=== PATIENT | male | born 1945 | race Caucasian/White ===

== ENCOUNTER 2017-08-23 21:58 | Inpatient (IN) | payer OTHER ==
[~2017-08-23] VITALS: Ht 170.2 cm; Wt 68.5 kg
--- NOTE | 2017-08-23 22:10 | NUR ---
PATIENT TO ED DT DIZZINES, NAUSEA AND BLOOD IN THE STOOL SINCE TUESDAY. PATIENT IS COMPLAINING ABDOMINAL DISCOMFORT PAIN,. PT IS AWAKE AND ALERT, APPEARS IN NO DISTRESS. RESPIRATION EVEN AND UNLABORED. SKIN IS WARM TO TOUCH AND NON DIAPHORETIC. PT IS AFEBRILE. VSS
[2017-08-23] MEDS ORDERED: ONDANSETRON HCL/PF 4 MG/2 ML VIAL ONE (22:20)
[2017-08-23] MEDS ORDERED: MORPHINE SULFATE INJ 4 MG/ML DISP.SYRIN ONE (22:21)
[2017-08-23] MEDS ORDERED: ONDANSETRON HCL/PF 4 MG/2 ML VIAL IVP ONE (22:30)
[2017-08-23] MEDS ORDERED: IV NS 0.9% 500 ML BAG IV ONE (22:30)
[2017-08-23] MEDS ORDERED: MORPHINE SULFATE INJ 2 MG/ML DISP.SYRIN IV ONE (22:30)
[2017-08-23 22:39] LABS: BASOPHILS # (AUTO) 0.1 /CMM (0.0-0.2); BASOPHILS % (AUTO) 1.1 % (0.0-2.0); EOSINOPHILS % (AUTO) 4.5 % (0.0-6.0); HEMATOCRIT 32 % (39-51); HEMOGLOBIN 10.9 g/dL (13.5-17.5); MEAN CORPUSCULAR HGB CONC 35 g/dl (31.0-36.0); MEAN CORPUSCULAR VOLUME 87 fL (80-96); MONOCYTES # (AUTO) 0.3 /CMM (0.1-1.30); MONOCYTES % (AUTO) 5.7 % (2.0-12.0); NEUTROPHILS # (AUTO) 4.4 /CMM (1.8-8.9); NEUTROPHILS % (AUTO) 72.7 % (43.0-81.0); PLATELET COUNT (AUTO) 105 /CMM (150-450); RDW COEFFICIENT OF VARIATION 14.5 (11.5-15.0); RED BLOOD CELL COUNT(AUTO) 3.64 MIL/uL (4.5-6.0); WHITE BLOOD COUNT (AUTO) 6.1 K/uL (4.3-11.0)
[2017-08-23 22:42] LABS: APPEARANCE,URINE CLEAR (CLEAR); BILIRUBIN,URINE NEGATIVE (NEGATIVE); BLOOD, URINE NEGATIVE Ery/uL (NEGATIVE); KETONES,URINE NEGATIVE (NEGATIVE); LEUKOCYTE ESTERASE ,URINE NEGATIVE (NEGATIVE); NITRITE, URINE NEGATIVE (NEGATIVE); PROTEIN,URINE 2+ mg/dl (NEGATIVE); UGLUCOSE NEGATIVE (NEGATIVE); UROBILINOGEN,URINE 0.2 EU/dL (0.2)
[2017-08-23 22:44] LABS: COLOR,URINE DARK YELLOW (YELLOW)
[2017-08-23 22:47] LABS: CALCIUM, SERUM 8.2 mg/dL (8.5-10.1); CARBON DIOXIDE 20 mmol/L (21-32); CHLORIDE 110 mmol/L (98-107); CREATININE 4.4 mg/dL (0.6-1.3); GLUCOSE 107 mg/dL (74-106); POTASSIUM 4.4 mmol/L (3.5-5.1); SODIUM SERUM 143 mmol/L (136-145); UREA NITROGEN, BLOOD 52 mg/dL (7-18)
[2017-08-23 22:51] LABS: INR 1.07 (0.87-1.13)
[2017-08-23 22:53] LABS: ALANINE AMINOTRANSFERASE 55 U/L (12-78); ALBUMIN 3.1 g/dL (3.4-5.0); ALKALINE PHOSPHATASE 63 U/L (46-116); ASPARTATE AMINOTRANSFERASE 45 U/L (15-37); BILIRUBIN,DIRECT 0.2 mg/dL (0.0-0.2); BILIRUBIN,TOTAL 0.7 mg/dL (0.2-1.0); LIPASE 587 U/L (73-393); TOTAL PROTEIN, SERUM 7.3 g/dL (6.4-8.2)
[2017-08-23 22:55] LABS: TROPONIN I < 0.017 ng/mL (0.00-0.056)
[2017-08-23 22:56] LABS: BACTERIA,URINE None seen /HPF (None Seen); RBC,URINE NONE SEEN /HPF (0-2); SQUAMOUS EPITHELIAL CELL,UR Few /HPF (None Seen); WBC,URINE 0-2 /HPF (0-3)
[2017-08-23 22:57] LABS: MUCUS,URINE Rare /LPF (None Seen)
[2017-08-24] VITALS (8 sets, daily range): BP systolic 141–182; BP diastolic 76–83
--- NOTE | 2017-08-24 01:04 | NUR ---
TELE 325-2
[2017-08-24] MEDS ORDERED: hydrALAZINE HCL IV 20 MG VIAL ONE (01:06)
--- NOTE | 2017-08-24 01:21 | NUR ---
REPORT GIVEN TO HAKAN PONCE FOR DARCY.
[2017-08-24] MEDS ORDERED: hydrALAZINE HCL IV 20 MG VIAL IV ONE (01:30)
[2017-08-24] MEDS ORDERED: HYDROCODONE/APAP 5/325MG 1 EACH TABLET PO PRN (02:00)
[2017-08-24] MEDS ORDERED: IV D5/ 0.9% NACL 1,000 ML IV ONE (02:00)
[2017-08-24] MEDS ORDERED: HYDROMORPHONE 1 MG/1 ML DISP.SYRIN IV PRN (02:00)
[2017-08-24] MEDS ORDERED: ACETAMINOPHEN 325 MG TABLET PO PRN (02:00)
[2017-08-24] MEDS ORDERED: ZOLPIDEM TARTRATE 5 MG TABLET PO PRN (02:00)
[2017-08-24] MEDS ORDERED: ONDANSETRON HCL/PF 4 MG/2 ML VIAL IV PRN (02:00)
[2017-08-24] MEDS: IV D5/ 0.9% NACL 1,000 ML IV SCH ×3 (02:35→23:44)
--- NOTE | 2017-08-24 02:52 | NUR ---
RN NOTES RECEIVE PT FROM [facility] AT 0130 VIA [facility] PT A/O X 4 , TOLERATING ROOM AIR 100% NO DIARRHEA OF TIME. HEAD TO TOE SKIN ASSESSMENT IS DONE. NO S/S OF DISTRESS, STABLE, SAFETY MEASURES IN PLACE, CALL LIGHT WITHIN REACH, WILL CONTINUE TO MONITOR. ATTACH TO TELE MONITOR. PT AFEBRILE. RESPIRATION EVEN AND UNLABORED.
--- NOTE | 2017-08-24 06:25 | NUR ---
LEOBARDO RN NOTES PT ASLEEP COMFORTABLY IN BED AND EASILY AWAKEN HEAD OF BED ELEVATED FOR BETTER LUNG EXPANSION AND GOOD CIRCULATION. TOLERATING ROOM AIR 98% NOT IN RESPIRATORY DISTRESS. NO COMPLAINS OF PAIN. STABLE CONDITION. NO DIARRHEA OF THIS TIME. NO S/S OF BLEEDING. PT KEPT CLEAN AND DRY AND COMFORT. NURSING CARE RENDERED. NEEDS ATTENDED AND ANTICIPATED. GOOD SKIN CARE PROVIDED. ON LOW BED TO ENSURE SAFETY, CALL LIGHT WITHIN REACH, WILL ENDORSE TO THE NEXT SHIFT CONTINUE PLAN OF CARE
--- NOTE | 2017-08-24 07:10 | NUR ---
RN OPENING TELE NOTES PT. IS ON NPO EXCEPT MEDS DUE TO DIAGNOSIS. RECEIVED PT. IN BED A&OX4. TELE MONITOR READING SINUS RHYTHM WITH 1ST DEGREE AV BLOCK AT 60 BPM. BREATHING UNLABORED ON ROOM AIR. NO SOB. NO S/S OF ACUTE DISTRESS. IV FLUIDS RUNNING AT 100 ML/HR. URINAL AT BEDSIDE. BED IS IN LOWEST, AND LOCKED POSITION, AND 2 SIDE RAILS UP. URINAL AT BEDSIDE. INSTRUCTED PT. TO USE CALL LIGHT FOR ASSISTANCE. ALL NEEDS MET. WILL CONTINUE TO ASSESS AND MONITOR.
[2017-08-24] MEDS ORDERED: PANTOPRAZOLE 40 MG VIAL IV SCH (07:30)
[2017-08-24 07:33] LABS: BASOPHILS % (AUTO) 0.6 % (0.0-2.0); CALCIUM, SERUM 7.6 mg/dL (8.5-10.1); CARBON DIOXIDE 19 mmol/L (21-32); CHLORIDE 115 mmol/L (98-107); EOSINOPHILS % (AUTO) 1.3 % (0.0-6.0); GLUCOSE 129 mg/dL (74-106); HEMATOCRIT 27 % (39-51); HEMOGLOBIN 9.4 g/dL (13.5-17.5); LYMPHOCYTES # (AUTO) 0.8 /CMM (0.8-4.8); LYMPHOCYTES % (AUTO) 17.8 % (20.0-44.0); MAGNESIUM 2.3 mg/dL (1.8-2.4); MEAN CORPUSCULAR HGB CONC 35 g/dl (31.0-36.0); MEAN CORPUSCULAR VOLUME 87 fL (80-96); MONOCYTES # (AUTO) 0.3 /CMM (0.1-1.30); MONOCYTES % (AUTO) 7.4 % (2.0-12.0); NEUTROPHILS # (AUTO) 3.3 /CMM (1.8-8.9); NEUTROPHILS % (AUTO) 72.9 % (43.0-81.0); PLATELET COUNT (AUTO) 70 /CMM (150-450); POTASSIUM 4.6 mmol/L (3.5-5.1); RDW COEFFICIENT OF VARIATION 14.4 (11.5-15.0); RED BLOOD CELL COUNT(AUTO) 3.12 MIL/uL (4.5-6.0); SODIUM SERUM 145 mmol/L (136-145); UREA NITROGEN, BLOOD 49 mg/dL (7-18); WHITE BLOOD COUNT (AUTO) 4.5 K/uL (4.3-11.0)
[2017-08-24 08:58] LABS: LYMPHOCYTES % (MANUAL) 18 % (16-48); MONOCYTES % (MANUAL) 9 % (0-11.0); NEUTROPHILS % (MANUAL) 73 (42-76)
[2017-08-24] MEDS: CARVEDILOL 3.125 MG TABLET PO SCH ×2 (09:48→20:22)
--- NOTE | 2017-08-24 11:33 | NUR ---
WOUND CARE CONSULT: PT PRESENTS INDEPENDENT WITH BED MOBILITY AND CONTINENT. CURRENT FELECIA SCORE IS 19. ABRASION TO RT ARM AND SKIN TEAR TO LEFT ELBOW AREA NOTED ON ADMISSION. RECOMMENDATIONS MADE FOR WOUND CARE AND DISCUSSED WITH NURSING STAFF. WILL SEE PRN. BELLO IN AGREEMENT WITH PLAN OF CARE. Addendum: 08/24/17 at 1135 by JONAS WILLIS WNDNU Amended: Links added.
[2017-08-24 11:55] LABS: HEMOGLOBIN 9.3 g/dL (13.5-17.5)
[2017-08-24] MEDS ORDERED: POLYETHYLENE GLYCOL 3350 17 GM POWD.PACK PO ONE (16:00)
--- NOTE | 2017-08-24 19:35 | NUR ---
RN CLOSING NOTES PT. REQUESTED TP MOVE TO BED 325 BED 1, OKAY FOR PT. TO MOVE TO BED 1, PER CHARGE NURSE. PT. IS ON NPO EXCEPT MEDS DUE TO DIAGNOSIS. PT. IN BED A&OX4. BREATHING UNLABORED ON ROOM AIR. NO SOB. NO S/S OF ACUTE DISTRESS. IV FLUIDS RUNNING AT 100 ML/HR. MIRALAX MIXTURE AT BEDSIDE. URINAL AT BEDSIDE. BED IS IN LOWEST, AND LOCKED POSITION, AND 2 SIDE RAILS UP. URINAL AT BEDSIDE. INSTRUCTED PT. TO USE CALL LIGHT FOR ASSISTANCE. ALL NEEDS MET. WILL ENDORSE REPORT TO NURSE.
--- NOTE | 2017-08-24 19:36 | NUR ---
RN NOTES RECEIVED PT AWAKE, HOB ELEVATED, ON ROOM AIR AND TOLERATED WELL. PT ALERT AND ORIENTED X3, NO SIGNS OF DISTRESS AND DISCOMFORT NOTED. IV ACCESS ON RIGHT FOREARM PATENT AND INTACT WITH ONGOING IVF INFUSING WELL. ENCOURAGE PT TO DRINK MIRALAX MIXTURE AT BEDSIDE. PLAN OF CARE DISCUSSED WITH THE PT AND AT BEDSIDE. SAFETY MEASURES AND FALL PRECAUTION OBSERVED. WILL CONTINUE TO MONITOR PT.
[2017-08-24] MEDS: PANTOPRAZOLE 40 MG VIAL IV SCH (20:21)
--- NOTE | 2017-08-25 07:03 | NUR ---
RN NOTES PT ASLEEP, ON ROOM AIR AND TOLERATED WELL. NO COMPLAIN OF PAIN, NAUSEA AND VOMITING. KEPT PT ON NPO. VOIDING WELL AND BM ALMOST CLEAR. FOR COLONOSCOPY AND EGT TODAY AT 1300, CONSENT SIGNED. ALL NEEDS ATTENDED. FALL PRECAUTION OBSERVED. WILL ENDORSE TO MORNING RN FOR CONTINUITY OF CARE.
--- NOTE | 2017-08-25 07:56 | NUR ---
MS/RN OPENING NOTE PATIENT IN BED IN STABLE CONDITION. A/O X 4. NO SIGNS OF ACUTE DISTRESS. NO COMPLAIN OF PAIN OR DISCOMFORT. NPO EXCEPT MEDS SECONDARY TO SCHEDULE FOR COLONOSCOPY PROCEDURE TODAY. ALL NEEDS ATTENDED TO. CALL LIGHT WITHIN REACH. WILL CONTINUE TO MONITOR TO ENSURE SAFETY.
--- NOTE | 2017-08-25 08:20 | NUR ---
MS/RN SPOKE WITH DR HARMAN SPOKE WITH DR HARMAN AND MADE AWARE PATIENT NOTED WITH ELEVATED BP OF 176/84, 53, SINCE YESTERDAY PATIENT HAD ELEVATED BP, CURRENTLY ONLY ON COREG 3.125 PO Q [address] HARMAN HE WILL PUT IN ORDER TO DISCONTINUE COREG AND START HYDRALAZINE 50MG TAB PO T.I.D. PATIENT MADE AWARE.
[2017-08-25 08:24] LABS: BASOPHILS % (AUTO) 0.9 % (0.0-2.0); EOSINOPHILS % (AUTO) 6.9 % (0.0-6.0); HEMATOCRIT 26 % (39-51); HEMOGLOBIN 8.9 g/dL (13.5-17.5); LYMPHOCYTES # (AUTO) 1.1 /CMM (0.8-4.8); LYMPHOCYTES % (AUTO) 25.3 % (20.0-44.0); MEAN CORPUSCULAR HGB CONC 34 g/dl (31.0-36.0); MEAN CORPUSCULAR VOLUME 88 fL (80-96); MONOCYTES # (AUTO) 0.4 /CMM (0.1-1.30); MONOCYTES % (AUTO) 8.3 % (2.0-12.0); NEUTROPHILS # (AUTO) 2.6 /CMM (1.8-8.9); NEUTROPHILS % (AUTO) 58.6 % (43.0-81.0); PLATELET COUNT (AUTO) 71 /CMM (150-450); RDW COEFFICIENT OF VARIATION 14.1 (11.5-15.0); RED BLOOD CELL COUNT(AUTO) 2.98 MIL/uL (4.5-6.0); WHITE BLOOD COUNT (AUTO) 4.4 K/uL (4.3-11.0)
[2017-08-25 08:28] LABS: CALCIUM, SERUM 7.6 mg/dL (8.5-10.1); CARBON DIOXIDE 20 mmol/L (21-32); CHLORIDE 117 mmol/L (98-107); GLUCOSE 98 mg/dL (74-106); POTASSIUM 4.6 mmol/L (3.5-5.1); SODIUM SERUM 145 mmol/L (136-145); UREA NITROGEN, BLOOD 41 mg/dL (7-18)
[2017-08-25 08:31] LABS: INR 1.11 (0.87-1.13)
[2017-08-25] MEDS: hydrALAZINE HCL 50 MG TABLET PO SCH ×3 (08:40→16:49)
[2017-08-25] MEDS: PANTOPRAZOLE 40 MG VIAL IV SCH ×2 (08:40→22:00)
[2017-08-25] MEDS: IV D5/ 0.9% NACL 1,000 ML IV SCH (08:46)
[2017-08-25 11:11] LABS: EOSINOPHILS % (MANUAL) 7 % (0-4); LYMPHOCYTES % (MANUAL) 26 % (16-48); MONOCYTES % (MANUAL) 5 % (0-11.0); NEUTROPHILS % (MANUAL) 62 (42-76)
[2017-08-25] MEDS ORDERED: METHYLENE BLUE 10 ML VIAL IJ ONE (13:55)
--- NOTE | 2017-08-25 14:55 | NUR ---
MS/RN RETURN FROM EGD AND COLONOSCOPY PROCEDURE RETURNED FROM EGD AND COLONOSCOPY PROCEDURE. PATIENT A/O X 3, AWAKE AND ALERT. NO COMPLAIN OF PAIN OR DISCOMFORT. NO SIGNS OF ACUTE DISTRESS. PER REPORT FROM TISH RN, POLYPS IN INTESTINES WERE NOTED, DR BUNN REMOVED 3 AND THERE IS BIG POLYP STILL THERE REQUIRING SURGERY AND DOCTOR SEPIDEH WILL PUT IN ORDERS NEEDED.
--- NOTE | 2017-08-25 14:57 | NUR ---
MS/RN SPOKE WITH DR HARMAN SPOKE WITH DR HARMAN AND PER DR HARMAN TO DC IV FLUIDS SINCE PATIENT IS STARTED ON PO DIET.
[2017-08-25 16:00] VITALS: BP 154/79
--- NOTE | 2017-08-25 18:31 | NUR ---
MS/RN CLOSING NOTE PATIENT IN BED IN STABLE CONDITION. A/O X 3. NO SIGNS OF ACUTE DISTRESS. NO COMPLAIN OF PAIN OR DISCOMFORT. ALL NEEDS ATTENDED TO. CALL LIGHT WITHIN REACH. WILL ENDORSE TO NEXT SHIFT FOR CONTINUITY OF CARE.
--- NOTE | 2017-08-25 19:00 | NUR ---
RN NOTES RECEIVE PT IN BED A/O X 4 NO S/S OF DISTRESS, STABLE, SAFETY MEASURES IN PLACE, CALL LIGHT WITHIN REACH, WILL CONTINUE TO MONITOR
[2017-08-25 20:00] VITALS: BP 155/78
[2017-08-25] MEDS ORDERED: hydrALAZINE HCL 25 MG TABLET PO SCH (21:00)
--- NOTE | 2017-08-25 21:02 | NUR ---
DR. HARMAN CALLED SPOKE TO HIM RELAYED LATEST BP PER DR. HARMAN CHANGE HYDRALAZINE TO 75 MG PO TID TO START TOMORROW 08/26/17 AND TO GIVE 25 MG OF HYDRALAZINE PO NOW ONCE NOTED AND CARRIED OUT VERIFIED ORDERS AND READ BACK
--- NOTE | 2017-08-26 06:41 | NUR ---
MS RN NOTES PT A/O X 4. ASLEEP AND EASILY AWAKEN TOLERATING ROOM AIR 99%. STABLE CONDITION. NOT IN RESPIRATORY DISTRESS. KEPT CLEAN AND DRY AND COMFORT. NURSING CARE RENDERED. NEEDS ATTENDED AND ANTICIPATED. ON LOW BED TO ENSURE SAFETY, CALL LIGHT WITHIN REACH, WILL ENDORSE TO THE NEXT SHIFT CONTINUE PLAN OF CARE.
--- NOTE | 2017-08-26 07:30 | NUR ---
RN MS NOTES PT IN BED, ASLEEP, EASILY AROUSABLE, ALERT AND ORIENTED, DENIES PAIN OR ANY DISCOMFORT, RESPIRATIONS NORMAL, ON LOW BED, CALL LIGHT WITHIN REACH, KEPT COMFORTABLE.
[2017-08-26 08:00] VITALS: BP 135/65
[2017-08-26 08:00] LABS: CALCIUM, SERUM 7.9 mg/dL (8.5-10.1); CARBON DIOXIDE 19 mmol/L (21-32); CHLORIDE 116 mmol/L (98-107); CREATININE 4.1 mg/dL (0.6-1.3); GLUCOSE 85 mg/dL (74-106); POTASSIUM 4.7 mmol/L (3.5-5.1); SODIUM SERUM 144 mmol/L (136-145); UREA NITROGEN, BLOOD 37 mg/dL (7-18)
[2017-08-26 08:02] LABS: BASOPHILS % (AUTO) 0.5 % (0.0-2.0); EOSINOPHILS % (AUTO) 2.5 % (0.0-6.0); HEMATOCRIT 27 % (39-51); HEMOGLOBIN 9.1 g/dL (13.5-17.5); LYMPHOCYTES % (AUTO) 17.6 % (20.0-44.0); MEAN CORPUSCULAR HGB CONC 34 g/dl (31.0-36.0); MEAN CORPUSCULAR VOLUME 86 fL (80-96); MONOCYTES # (AUTO) 0.5 /CMM (0.1-1.30); MONOCYTES % (AUTO) 9.5 % (2.0-12.0); NEUTROPHILS # (AUTO) 3.8 /CMM (1.8-8.9); NEUTROPHILS % (AUTO) 69.9 % (43.0-81.0); PLATELET COUNT (AUTO) 71 /CMM (150-450); WHITE BLOOD COUNT (AUTO) 5.4 K/uL (4.3-11.0)
[2017-08-26] MEDS ORDERED: FERR325T23 PO (08:25)
[2017-08-26] MEDS ORDERED: HYDR-4077 PO (08:25)
[2017-08-26] MEDS ORDERED: PANT40TA2 PO (08:26)
[2017-08-26 08:42] VITALS: BP 135/65
[2017-08-26] MEDS: PANTOPRAZOLE 40 MG VIAL IV SCH (08:42)
[2017-08-26] MEDS ORDERED: hydrALAZINE HCL 50 MG TABLET PO SCH ×2 (09:00)
[2017-08-26 10:07] LABS: EOSINOPHILS % (MANUAL) 4 % (0-4); LYMPHOCYTES % (MANUAL) 9 % (16-48); MONOCYTES % (MANUAL) 4 % (0-11.0); NEUTROPHILS % (MANUAL) 83 (42-76)
--- NOTE | 2017-08-26 11:25 | NUR ---
RN MS NOTES PT IN BED, AWAKE, ALERT AND ORIENTED, NO COMPLAINT OF PAIN, NOT IN DISTRESS, TOLERATES CURRENT DIET WELL, SEEN BY DR. HARMAN, DISCHARGE ORDER GIVEN, DISCHARGE AND MEDICATION INSTRUCTIONS PROVIDED TO PT, PT TO SEE HIS PRIMARY CARE PHYSICIAN AND FOLLOW UP WITH GI AND SURGEON, VERBALIZED UNDERSTANDING, BELONGINGS ACCOUNTED FOR, SKIN CHECK DONE AND DOCUMENTED, PRESCRIPTION AND INSTRUCTIONS PROVIDED TO PT, VERBALIZED UNDERSTANDING, AMBULATES IN THE ROOM WITH STEADY GAIT, OFFERED WHEELCHAIR BUT PT REFUSED, STATED HE WOULD LIKE TO WALK, ACCOMPANIED PT AND FAMILY TO THE LOBBY, LEFT IN STABLE CONDITION.
== END 2017-08-26 11:25 | disposition home or self-care (01) | DRG 375 ==
LOC: ER 22:02 → TELE 08-24 01:09 → MED 08-24 08:58
PROVIDERS: ADMIT Internal Medicine; ATTEND Internal Medicine
PROC: 0DBN8ZZ Excision of Sigmoid Colon, Via Natural or Artificial Opening Endoscopic (ICD-10-PCS; 2017-08-25)
PROC: 0DBM8ZZ Excision of Descending Colon, Via Natural or Artificial Opening Endoscopic (ICD-10-PCS; 2017-08-25)
PROC: 0DBN8ZZ Excision of Sigmoid Colon, Via Natural or Artificial Opening Endoscopic (ICD-10-PCS; 2017-08-25)
PROC: 0DB68ZX Excision of Stomach, Via Natural or Artificial Opening Endoscopic, Diagnostic (ICD-10-PCS; principal; 2017-08-25 13:46)
PROC: 0DBP8ZZ Excision of Rectum, Via Natural or Artificial Opening Endoscopic (ICD-10-PCS; 2017-08-25 13:46)
DX: C18.7 Malignant neoplasm of sigmoid colon (principal); N18.4 Chronic kidney disease, stage 4 (severe); D62 Acute posthemorrhagic anemia; D50.0 Iron deficiency anemia secondary to blood loss (chronic); K29.80 Duodenitis without bleeding; D12.4 Benign neoplasm of descending colon; K43.9 Ventral hernia without obstruction or gangrene; K20.9 Esophagitis, unspecified; K29.70 Gastritis, unspecified, without bleeding; K64.8 Other hemorrhoids; I12.9 Hypertensive chronic kidney disease with stage 1 through stage 4 chronic kidney disease, or unspecified chronic kidney disease; D12.8 Benign neoplasm of rectum; K44.9 Diaphragmatic hernia without obstruction or gangrene; K57.30 Diverticulosis of large intestine without perforation or abscess without bleeding; K63.5 Polyp of colon; Z98.890 Other specified postprocedural states
CPT/HCPCS: 36415; 76770-TC; 80048-TC; 80076-TC; 81000-TC; 83690-TC; 83735-TC; 84484-TC; 85025-TC; 85027-TC; 85730-TC; 87081-TC; 88305-TC; 88313-TC; 88342; A4606; A6403; C9113; J0360; J2270; J2405; J2704; J3490; J7040; J7042; Q9968; Z7610